=== PATIENT | male | born 1940 | race Caucasian/White ===

== ENCOUNTER 2023-11-18 04:43 | Inpatient (IN) | payer MEDICARE ==
[~2023-11-18] VITALS: Ht 170.2 cm; Wt 88.7 kg
[2023-11-18] VITALS (29 sets, daily range): BP systolic 84–142; BP diastolic 34–68; PULSE 96–112; RESP 15–28; TEMP 97.8–98.6; O2SAT 95
[2023-11-18 05:20] LABS: HEMATOCRIT. 25.2 % (42.0-52.0); HEMOGLOBIN. 7.7 g/dL (14.0-18.0); MEAN CORPUSCULAR HEMOGLOBIN 25.3 pg (28.0-32.0); MEAN CORPUSCULAR HGB CONC 30.6 g/dL (31.0-37.0); MEAN CORPUSCULAR VOLUME 82.7 fL (80.0-94.0); MEAN PLATELET VOLUME 8.5 fl (7.4-10.4); PLATELET 144 x1000/uL (130-400); RED BLOOD CELL COUNT 3.05 mill/uL (4.7-6.1); RED CELL DISTRIBUTION WIDTH 19.1 % (11.6-14.6); WHITE BLOOD COUNT 24.4 x1000/uL (4.5-11.0)
[2023-11-18 05:22] LABS: DIFFERENTIAL COMMENT 1
[2023-11-18 05:26] LABS: CHLORIDE 101 mEq/L (98-107); POTASSIUM 5.3 mEq/L (3.5-5.1); SODIUM 132 mEq/L (136-145)
[2023-11-18 05:28] LABS: CALCIUM 8.3 mg/dL (8.7-10.4); CARBON DIOXIDE 22 mEq/L (21-32)
[2023-11-18 05:33] LABS: CREATININE 2.5 mg/dL (0.6-1.3); GLUCOSE 86 mg/dL (70-105); UREA NITROGEN BLOOD 82 mg/dL (9-23)
[2023-11-18 05:34] LABS: ALANINE AMINOTRANSFERASE 18 IU/L (10-49); ASPARTATE AMINOTRANSFERASE 39 IU/L (<34)
[2023-11-18 05:35] LABS: ALBUMIN 2.8 g/dL (3.2-4.8); BILIRUBIN DIRECT 0.6 mg/dL (<=3.0); BILIRUBIN TOTAL 0.9 mg/dL (0.1-1.0); LACTIC ACID 2.1 mmol/L (0.4-2.0); PROTEIN TOTAL 5.8 g/dL (6.0-8.3)
[2023-11-18 05:38] LABS: INR 1.4; PROTHROMBIN TIME 15.1 sec (9.6-11.0)
[2023-11-18 06:00] LABS: HYPOCHROMASIA 2+; OVALOCYTES 3+; PLATELET ESTIMATE NORMAL; TARGET CELLS 1+; TEAR DROP CELLS 1+
[2023-11-18] MEDS: SODIUM CHLORIDE 0.9% 1,000 ML IV ONE ×2 (06:45→07:44)
[2023-11-18] MEDS: IOHEXOL-350 100 ML BOTTLE ONE (07:28)
[2023-11-18] MEDS: SODIUM CHLORIDE 0.9% 1000ML BAG (SEPSIS BOLUS) IV ONE (08:00)
[2023-11-18] MEDS: PIPERACILLIN/TAZO 3.375G/50ML 50 ML IV ONE (08:00)
[2023-11-18 08:51] LABS: TROPONIN I HIGH SENSITIVITY 113 ng/L (3.0-53)
[2023-11-18] MEDS: VANCOMYCIN 1G PREMIX 200 ML IV ONE (09:03)
[2023-11-18] MEDS: OCTREOTIDE 1,000 MCG in SODIUM CHLORIDE 0.9% 100 ML IV STA (09:59)
[2023-11-18] MEDS: NOREPINEPHRINE 8MG/250ML PMX 250 ML IV SCH (10:05)
[2023-11-18] MEDS: OCTREOTIDE 1,000 MCG in SODIUM CHLORIDE 0.9% 100 ML IV SCH (11:12)
[2023-11-18] MEDS: PANTOPRAZOLE SODIUM 40 MG/VIAL IV STA (11:13)
[2023-11-18] MEDS: OCTREOTIDE ACETATE 50 MCG/ML 1ML IV STA (11:21)
[2023-11-18] MEDS: LIDOCAINE HCL 1% 10 MG/ML 10ML VIAL ONE (12:14)
[2023-11-18 12:32] LABS: CLARITY URINE CLEAR (CLEAR); COLOR URINE YELLOW (YELLOW); GLUCOSE URINE NEGATIVE (NEGATIVE); KETONES URINE TRACE (NEGATIVE); LEUKOCYTE ESTERASE URINE TRACE (NEGATIVE); NITRITE URINE NEGATIVE (NEGATIVE); OCCULT BLOOD URINE TRACE (NEGATIVE); PH URINE 5.5 (4.5-8.0); PROTEIN URINE NEGATIVE (NEGATIVE); SPECIFIC GRAVITY URINE 1.024 (1.005-1.030); UROBILINOGEN URINE 0.2 E.U./dL (0.2-1.0)
[2023-11-18 12:48] LABS: BACTERIA URINE 1+; RBC URINE 0-2 /hpf (0-2); SQUAMOUS EPITHELIAL CELL URINE NONE SEEN /lpf (RARE/1+); YEAST URINE NONE SEEN
[2023-11-18] MEDS: NOREPINEPHRINE 8MG/250ML PMX 250 ML IV PRN (15:40)
[2023-11-18] MEDS ORDERED: VANCOMYCIN 1G PREMIX 200 ML IV SCH (18:45)
[2023-11-18] MEDS ORDERED: ONDANSETRON HCL 4MG/2ML INJ IV PRN (18:45)
[2023-11-18] MEDS: LORAZEPAM 2MG/ML INJ IV PRN (21:40)
[2023-11-18] MEDS: ALBUMIN HUMAN 25GM/100ML (25%) IV SCH (21:42)
[2023-11-18] MEDS: PANTOPRAZOLE SODIUM 40 MG/VIAL IV SCH (21:43)
[2023-11-18] MEDS: PIPERACILLIN/TAZO 3.375G/50ML 50 ML IV SCH (21:43)
[2023-11-18] MEDS: VANCOMYCIN 1GM/200ML PMX (BAXTER) IV NR (21:44)
[2023-11-18 22:16] LABS: HEMATOCRIT. 27.9 % (42.0-52.0); HEMOGLOBIN. 8.3 g/dL (14.0-18.0); MEAN CORPUSCULAR HGB CONC 29.7 g/dL (31.0-37.0); MEAN CORPUSCULAR VOLUME 84.1 fL (80.0-94.0); MEAN PLATELET VOLUME 8.9 fl (7.4-10.4); PLATELET 154 x1000/uL (130-400); RED BLOOD CELL COUNT 3.32 mill/uL (4.7-6.1); RED CELL DISTRIBUTION WIDTH 18.6 % (11.6-14.6); WHITE BLOOD COUNT 25.6 x1000/uL (4.5-11.0)
[2023-11-18 22:17] LABS: DIFFERENTIAL COMMENT 1
[2023-11-18 22:20] LABS: CHLORIDE 102 mEq/L (98-107); POTASSIUM 5.6 mEq/L (3.5-5.1); SODIUM 133 mEq/L (136-145)
[2023-11-18 22:21] LABS: CARBON DIOXIDE 18 mEq/L (21-32)
[2023-11-18 22:21] LABS: IRON 14 ug/dL (65-175)
[2023-11-18 22:22] LABS: CALCIUM 7.8 mg/dL (8.7-10.4)
[2023-11-18 22:24] LABS: GAMMA GLUTAMYL TRANSPEPTIDASE 74 IU/L (<73); TOTAL IRON BINDING CAPACITY 229 ug/dl (250-425)
[2023-11-18 22:25] LABS: AMMONIA 61 uMol/L (<32)
[2023-11-18 22:26] LABS: CREATININE 2.4 mg/dL (0.6-1.3); GLUCOSE 109 mg/dL (70-105)
[2023-11-18 22:27] LABS: UREA NITROGEN BLOOD 64 mg/dL (9-23)
[2023-11-18 22:28] LABS: ALANINE AMINOTRANSFERASE 20 IU/L (10-49); ALBUMIN 2.4 g/dL (3.2-4.8); ASPARTATE AMINOTRANSFERASE 44 IU/L (<34)
[2023-11-18 22:29] LABS: BILIRUBIN TOTAL 1.5 mg/dL (0.1-1.0); PROTEIN TOTAL 5.5 g/dL (6.0-8.3)
[2023-11-18 22:32] LABS: FERRITIN 120 ng/mL (22-322)
[2023-11-18 22:33] LABS: FOLIC ACID (FOLATE) SERUM 9.76 ng/mL (>5.38)
[2023-11-18 22:36] LABS: VITAMIN B12 SERUM > 2000 pg/mL (211-911)
[2023-11-18 22:44] LABS: HEPATITIS B SURFACE ANTIGEN NEGATIVE (Negative)
[2023-11-18 23:04] LABS: HEPATITIS A AB IGM NEGATIVE (Negative)
[2023-11-18 23:06] LABS: HEPATITIS C AB NON REACTIVE (Neg) (Negative)
[2023-11-18 23:09] LABS: HEPATITIS B CORE AB IGM NEGATIVE (Negative)
[2023-11-18 23:13] LABS: ANISOCYTOSIS 1+; PLATELET ESTIMATE NORMAL
[2023-11-19] VITALS (86 sets, daily range): BP systolic 72–189; BP diastolic 33–143; PULSE 89–103; RESP 12–41; TEMP 97.4–98.6
[2023-11-19 05:48] LABS: INR 1.3; PROTHROMBIN TIME 14.6 sec (9.6-11.0)
[2023-11-19 05:49] LABS: HEMATOCRIT. 24.9 % (42.0-52.0); HEMOGLOBIN. 7.4 g/dL (14.0-18.0); MEAN CORPUSCULAR HEMOGLOBIN 25.6 pg (28.0-32.0); MEAN CORPUSCULAR HGB CONC 29.7 g/dL (31.0-37.0); MEAN CORPUSCULAR VOLUME 86.2 fL (80.0-94.0); MEAN PLATELET VOLUME 8.4 fl (7.4-10.4); PLATELET 106 x1000/uL (130-400); RED BLOOD CELL COUNT 2.89 mill/uL (4.7-6.1); RED CELL DISTRIBUTION WIDTH 19.2 % (11.6-14.6); WHITE BLOOD COUNT 18.8 x1000/uL (4.5-11.0)
[2023-11-19 05:56] LABS: CALCIUM 7.9 mg/dL (8.7-10.4); CARBON DIOXIDE 19 mEq/L (21-32); CHLORIDE 104 mEq/L (98-107); POTASSIUM 5.4 mEq/L (3.5-5.1); SODIUM 135 mEq/L (136-145)
[2023-11-19 05:58] LABS: CREATINE KINASE MB FRACTION 2.5 ng/mL (0.5-3.6)
[2023-11-19 06:02] LABS: CREATININE 2.5 mg/dL (0.6-1.3); GLUCOSE 115 mg/dL (70-105); UREA NITROGEN BLOOD 74 mg/dL (9-23)
[2023-11-19 06:04] LABS: PHOSPHORUS 6.7 mg/dL (2.5-4.9)
[2023-11-19] MEDS: LACTULOSE 20G/30ML UDC PO SCH (07:00)
[2023-11-19 07:04] LABS: DIFFERENTIAL COMMENT 1
[2023-11-19 10:35] LABS: CREATINE KINASE MB FRACTION 2.7 ng/mL (0.5-3.6)
[2023-11-19] MEDS ORDERED: FENTANYL CITRATE/PF 50MCG/ML 2ML VIAL IV SCH (11:30)
[2023-11-19] MEDS ORDERED: ACETAMINOPHEN 650MG SUPP PR PRN (11:30)
[2023-11-19 12:31] LABS: ANISOCYTOSIS 2+; PLATELET ESTIMATE DECREASED
[2023-11-19] MEDS: SODIUM CHLORIDE 0.9% 1,000 ML IV SCH (15:49)
[2023-11-19] MEDS: OCTREOTIDE 1,000 MCG in SODIUM CHLORIDE 0.9% 98 ML IV SCH (15:50)
[2023-11-19 21:12] LABS: SODIUM URINE RANDOM 14 mEq/L
[2023-11-19 21:16] LABS: PROTEIN URINE RANDOM 31 mg/dL
[2023-11-19] MEDS ORDERED: OCTREOTIDE ACETATE 100 MCG/ML VIAL SUBCUT SCH (22:00)
[2023-11-20] VITALS (76 sets, daily range): BP systolic 66–113; BP diastolic 43–96; PULSE 97–110; RESP 12–34; TEMP 97.3–98.7
[2023-11-20 07:22] LABS: HEMATOCRIT. 26.4 % (42.0-52.0); HEMOGLOBIN. 7.6 g/dL (14.0-18.0); MEAN CORPUSCULAR HEMOGLOBIN 24.8 pg (28.0-32.0); MEAN CORPUSCULAR HGB CONC 28.6 g/dL (31.0-37.0); MEAN CORPUSCULAR VOLUME 86.5 fL (80.0-94.0); MEAN PLATELET VOLUME 8.4 fl (7.4-10.4); PLATELET 91 x1000/uL (130-400); RED BLOOD CELL COUNT 3.06 mill/uL (4.7-6.1); RED CELL DISTRIBUTION WIDTH 19.1 % (11.6-14.6); WHITE BLOOD COUNT 17.7 x1000/uL (4.5-11.0)
[2023-11-20 07:25] LABS: DIFFERENTIAL COMMENT 1
[2023-11-20 07:27] LABS: CREATININE 2.4 mg/dL (0.6-1.3)
[2023-11-20] MEDS: VANCOMYCIN 1G PREMIX 200 ML IV SCH (10:20)
[2023-11-20 10:45] LABS: ALANINE AMINOTRANSFERASE 15 IU/L (10-49); ALBUMIN 2.9 g/dL (3.2-4.8); ASPARTATE AMINOTRANSFERASE 32 IU/L (<34); BILIRUBIN DIRECT 0.8 mg/dL (<=3.0); BILIRUBIN TOTAL 1.1 mg/dL (0.1-1.0); PROTEIN TOTAL 5.8 g/dL (6.0-8.3)
[2023-11-20 11:20] LABS: BG BASE EXCESS -8.3 mmol/L (-2.0-2.0); BG CARBOXYHEMOGLOBIN 0.6 % (0.5-1.5); BG DEOXYHEMOGLOBIN 5.3 % (0.0-5.0); BG FRACTION INSPIRED OXYGEN 40; BG HCO3 ACT 18.6 mmol/L (22.0-26.0); BG METHEMOGLOBIN 0.3 % (0.0-1.5); BG OXYGEN SATURATION 94.7 % (92.0-98.5); BG OXYHEMOGLOBIN 93.8 % (94.0-97.0); BG PH 7.235 (7.350-7.450); BG PO2 83.3 mmHg (75.0-100.0); BG SAMPLE SITE RIGHT RADIAL; BG TOTAL HEMOGLOBIN 7.9 g/dL (12.0-18.0); BG VENT MODE NASAL CANNULA
[2023-11-20 12:04] LABS: PLATELET ESTIMATE DECREASED
[2023-11-20 12:05] LABS: ANISOCYTOSIS 1+; MICROCYTOSIS 1+
[2023-11-20] MEDS: NOREPINEPHRINE 32 MG in DEXT 5% WATER 218 ML IV PRN (15:11)
[2023-11-20] MEDS: METHYLPREDNISOLONE SOD SUCC 40MG/ML (ACT-O-VIAL) IV SCH (18:02)
[2023-11-20] MEDS: BLOOD SUGAR DIAGNOSTIC STRIP TEST SCH (21:35)
[2023-11-21] VITALS (100 sets, daily range): BP systolic 70–135; BP diastolic 49–105; PULSE 91–111; RESP 16–41; TEMP 97.3–98.7
[2023-11-21 04:58] LABS: HEMOGLOBIN. 8.2 g/dL (14.0-18.0); MEAN CORPUSCULAR HGB CONC 27.4 g/dL (31.0-37.0); MEAN PLATELET VOLUME 8.3 fl (7.4-10.4); PLATELET 90 x1000/uL (130-400); RED BLOOD CELL COUNT 3.29 mill/uL (4.7-6.1); RED CELL DISTRIBUTION WIDTH 19.5 % (11.6-14.6); WHITE BLOOD COUNT 24.1 x1000/uL (4.5-11.0)
[2023-11-21 05:08] LABS: POTASSIUM 5.3 mEq/L (3.5-5.1)
[2023-11-21 05:09] LABS: CALCIUM 8.2 mg/dL (8.7-10.4)
[2023-11-21 05:14] LABS: CREATININE 2.2 mg/dL (0.6-1.3)
[2023-11-21 06:18] LABS: DIFFERENTIAL COMMENT 1
[2023-11-21] MEDS: ALBUMIN HUMAN 12.5G/250ML (5%) IV NR (08:16)
[2023-11-21 10:07] LABS: PLATELET ESTIMATE SLIGHTLY DECREASED
[2023-11-21 10:09] LABS: ANISOCYTOSIS 2+
[2023-11-21 11:39] LABS: BODY FLUID MONOCYTES 1 %; BODY FLUID RBC 658 /cu mm (0-2000); BODY FLUID WBC 100 /cu mm (0-200)
[2023-11-21 13:12] LABS: BG BASE EXCESS -9.1 mmol/L (-2.0-2.0); BG DEOXYHEMOGLOBIN 6.2 % (0.0-5.0); BG FRACTION INSPIRED OXYGEN 44; BG HCO3 ACT 18.8 mmol/L (22.0-26.0); BG METHEMOGLOBIN 0.3 % (0.0-1.5); BG OXYGEN SATURATION 93.7 % (92.0-98.5); BG OXYHEMOGLOBIN 92.5 % (94.0-97.0); BG PH 7.177 (7.350-7.450); BG PO2 78.3 mmHg (75.0-100.0); BG SAMPLE SITE RIGHT RADIAL; BG TOTAL HEMOGLOBIN 8.1 g/dL (12.0-18.0); BG VENT MODE NASAL CANNULA
[2023-11-21 15:57] LABS: BG BASE EXCESS -6.9 mmol/L (-2.0-2.0); BG CARBOXYHEMOGLOBIN 0.5 % (0.5-1.5); BG DEOXYHEMOGLOBIN 9.1 % (0.0-5.0); BG FRACTION INSPIRED OXYGEN 40; BG HCO3 ACT 20.7 mmol/L (22.0-26.0); BG METHEMOGLOBIN 0.4 % (0.0-1.5); BG OXYGEN SATURATION 90.8 % (92.0-98.5); BG PCO2 52.6 mmHg (35.0-45.0); BG PH 7.213 (7.350-7.450); BG PO2 65.5 mmHg (75.0-100.0); BG SAMPLE SITE LEFT RADIAL; BG TOTAL HEMOGLOBIN 8.3 g/dL (12.0-18.0); BG TOTAL RESPIRATORY RATE 27 b/min; BG VENT MODE MASK - BIPAP
[2023-11-22] VITALS (107 sets, daily range): BP systolic 70–169; BP diastolic 45–120; PULSE 89–113; RESP 19–39; TEMP 98.1–98.8
[2023-11-22 05:22] LABS: CREATININE 2.3 mg/dL (0.6-1.3)
[2023-11-22 05:28] LABS: HEMATOCRIT. 24.9 % (42.0-52.0); HEMOGLOBIN. 7.3 g/dL (14.0-18.0); MEAN CORPUSCULAR HEMOGLOBIN 25.3 pg (28.0-32.0); MEAN CORPUSCULAR HGB CONC 29.2 g/dL (31.0-37.0); MEAN CORPUSCULAR VOLUME 86.7 fL (80.0-94.0); RED BLOOD CELL COUNT 2.87 mill/uL (4.7-6.1); RED CELL DISTRIBUTION WIDTH 19.3 % (11.6-14.6); WHITE BLOOD COUNT 22.6 x1000/uL (4.5-11.0)
[2023-11-22 05:32] LABS: POTASSIUM 5.7 mEq/L (3.5-5.1)
[2023-11-22] MEDS ORDERED: DEXTROSE 50% WATER 50ML SYRINGE IV PRN (07:15)
[2023-11-22 07:23] LABS: DIFFERENTIAL COMMENT 1; PLATELET 47 x1000/uL (130-400)
[2023-11-22] MEDS: INSULIN LISPRO 100 UNITS/ML SUBCUT SCH (07:33)
[2023-11-22] MEDS: IPRATROPIUM/ALBUTEROL 0.5-3(2.5)MG/3ML NEB HHN PRN (08:38)
[2023-11-22] MEDS ORDERED: SODIUM POLYSTYRENE SULFONATE 15 G/60 ML BOT PR ONE (09:15)
[2023-11-22 10:12] LABS: ANISOCYTOSIS 2+; NUCLEATED RED BLOOD CELLS 1 /100 WBC; PLATELET ESTIMATE MARKEDLY DECREASED
[2023-11-22 10:14] LABS: MICROCYTOSIS 1+
[2023-11-22] MEDS: SODIUM ZIRCONIUM CYCLOSILICATE 10GM/PACKET PO NR (10:42)
[2023-11-22] MEDS: ALBUMIN HUMAN 12.5GM/50ML (25%) IV SCH (10:43)
[2023-11-22] MEDS: SODIUM POLYSTYRENE SULFONATE 15 G/60 ML BOT PR NR (13:27)
[2023-11-22] MEDS ORDERED: OCTREOTIDE 1,000 MCG in SODIUM CHLORIDE 0.9% 98 ML IV SCH (15:00)
[2023-11-22] MEDS: OCTREOTIDE 1,000 MCG in SODIUM CHLORIDE 0.9% 98 ML IV SCH (15:19)
[2023-11-22 17:23] LABS: INR 1.6; PROTHROMBIN TIME 17.5 sec (9.6-11.0)
[2023-11-22 17:35] LABS: AMMONIA 32 uMol/L (<32)
[2023-11-23] VITALS (78 sets, daily range): BP systolic 42–133; BP diastolic 22–120; PULSE 54–175; RESP 16–38; TEMP 94.7–98.6
[2023-11-23] MEDS: ALBUMIN HUMAN 12.5GM/50ML (25%) IV NR (02:19)
[2023-11-23 05:22] LABS: CALCIUM 8.3 mg/dL (8.7-10.4); MEAN CORPUSCULAR HEMOGLOBIN 24.8 pg (28.0-32.0); MEAN CORPUSCULAR HGB CONC 27.9 g/dL (31.0-37.0); MEAN CORPUSCULAR VOLUME 88.9 fL (80.0-94.0); MEAN PLATELET VOLUME 9.5 fl (7.4-10.4); POTASSIUM 4.9 mEq/L (3.5-5.1); RED BLOOD CELL COUNT 2.75 mill/uL (4.7-6.1); WHITE BLOOD COUNT 26.6 x1000/uL (4.5-11.0)
[2023-11-23 05:28] LABS: AMMONIA < 17 uMol/L (<32); CREATININE 2.3 mg/dL (0.6-1.3)
[2023-11-23 06:05] LABS: INR 1.7; PROTHROMBIN TIME 18.6 sec (9.6-11.0)
[2023-11-23 06:47] LABS: DIFFERENTIAL COMMENT 1; HEMATOCRIT. 24.4 % (42.0-52.0); HEMOGLOBIN. 6.8 g/dL (14.0-18.0); PLATELET 44 x1000/uL (130-400)
[2023-11-23] MEDS ORDERED: PHENYLEPHRINE 50MG/250ML PMX 250 ML IV PRN (07:00)
[2023-11-23] MEDS: DILTIAZEM HCL 5MG/ML 5ML VIAL IV NR ×2 (07:18→08:49)
[2023-11-23] MEDS: DIGOXIN 500MCG/2ML AMP IV NR (07:18)
[2023-11-23] MEDS ORDERED: PHENYLEPHRINE 50 MG in DEXT 5% WATER 245 ML IV PRN (07:20)
[2023-11-23 08:27] LABS: BG BASE EXCESS -9.5 mmol/L (-2.0-2.0); BG CARBOXYHEMOGLOBIN 0.7 % (0.5-1.5); BG DEOXYHEMOGLOBIN 9.1 % (0.0-5.0); BG FRACTION INSPIRED OXYGEN 100; BG HCO3 ACT 18.1 mmol/L (22.0-26.0); BG METHEMOGLOBIN 0.1 % (0.0-1.5); BG OXYGEN SATURATION 90.8 % (92.0-98.5); BG OXYHEMOGLOBIN 90.1 % (94.0-97.0); BG PCO2 48.6 mmHg (35.0-45.0); BG PH 7.189 (7.350-7.450); BG SAMPLE SITE RIGHT RADIAL; BG TOTAL HEMOGLOBIN 7.5 g/dL (12.0-18.0); BG VENT MODE MASK - BIPAP
[2023-11-23] MEDS: SODIUM BICARBONATE 8.4% 1 MEQ/ML 50ML SYR IV NR (08:50)
[2023-11-23] MEDS: SODIUM BICARBONATE 100 MEQ in SODIUM CHLORIDE 0.45% 900 ML IV SCH (09:07)
[2023-11-23] MEDS: MORPHINE SULFATE 2 MG/ML CPJ (NOT FOR IM USE) IV NR (10:41)
[2023-11-23] MEDS ORDERED: NALOXONE HCL 0.4MG/ML VIAL IV PRN (13:15)
[2023-11-23] MEDS: MORPHINE SULFATE 2 MG/ML CPJ (NOT FOR IM USE) IV SCH (13:22)
[2023-11-23 16:52] LABS: ANISOCYTOSIS 1+; HYPOCHROMASIA 1+; PLATELET ESTIMATE MARKEDLY DECREASED
[2023-11-23] MEDS ORDERED: VANCOMYCIN 750MG/150ML (BAXTER) IV SCH (21:00)
[2023-11-24] VITALS: BP 48/33; PULSE 50; RESP 9
[2023-11-24 01:00] VITALS: BP 42/30; PULSE 49; RESP 8
[2023-11-24 02:00] VITALS: BP 44/30; PULSE 49; RESP 12
[2023-11-24 03:00] VITALS: BP 42/29; PULSE 46; RESP 10
[2023-11-24 04:00] VITALS: BP 40/24; PULSE 46; RESP 15
[2023-11-24 05:00] VITALS: BP 38/28; PULSE 54; RESP 18
== END 2023-11-24 06:28 | DRG 871 ==
LOC: ER 04:43 → CVICU 13:13 → EDBEDREQ 13:15 → EDBEDREQTM 13:15 → EDBEDREQSVC 13:15
PROVIDERS: ADMIT Internal Medicine; ATTEND Internal Medicine
PROC: 30233N1 Transfusion of Nonautologous Red Blood Cells into Peripheral Vein, Percutaneous Approach (ICD-10-PCS; 2023-11-18)
PROC: 02HV33Z Insertion of Infusion Device into Superior Vena Cava, Percutaneous Approach (ICD-10-PCS; 2023-11-18)
PROC: B548ZZA Ultrasonography of Superior Vena Cava, Guidance (ICD-10-PCS; 2023-11-18)
PROC: 0W9G3ZZ Drainage of Peritoneal Cavity, Percutaneous Approach (ICD-10-PCS; principal; 2023-11-21)
PROC: 5A09357 Assistance with Respiratory Ventilation, Less than 24 Consecutive Hours, Continuous Positive Airway Pressure (ICD-10-PCS; 2023-11-21)
PROC: 5A09357 Assistance with Respiratory Ventilation, Less than 24 Consecutive Hours, Continuous Positive Airway Pressure (ICD-10-PCS; 2023-11-22)
PROC: 5A09357 Assistance with Respiratory Ventilation, Less than 24 Consecutive Hours, Continuous Positive Airway Pressure (ICD-10-PCS; 2023-11-23)
DX: A41.9 Sepsis, unspecified organism (principal); I85.11 Secondary esophageal varices with bleeding; J18.9 Pneumonia, unspecified organism; R65.21 Severe sepsis with septic shock; J96.02 Acute respiratory failure with hypercapnia; N17.9 Acute kidney failure, unspecified; R18.8 Other ascites; I13.0 Hypertensive heart and chronic kidney disease with heart failure and stage 1 through stage 4 chronic kidney disease, or unspecified chronic kidney disease; D68.9 Coagulation defect, unspecified; K76.6 Portal hypertension; Z66 Do not resuscitate; I71.43 Infrarenal abdominal aortic aneurysm, without rupture; K21.9 Gastro-esophageal reflux disease without esophagitis; K74.60 Unspecified cirrhosis of liver; N18.9 Chronic kidney disease, unspecified; I50.9 Heart failure, unspecified; D64.9 Anemia, unspecified; E61.1 Iron deficiency; K76.82 Hepatic encephalopathy; Z78.1 Physical restraint status
CPT/HCPCS: 36415; 36573; 36600; 49083; 71045; 71275; 74174; 80048; 80076; 80202; 81003; 82140; 82375; 82550; 82553; 82607; 82728; 82746; 82805; 82962; 82977; 83036; 83540; 83550; 83605; 83735; 84100; 84145; 84156; 84300; 84484; 85025; 85044; 85384; 86705; 86709; 86850; 86900; 86920; 87070; 87340; 93005; 94640; 94660; 99291; C1725; C9113; J1160; J1815; J2060; J2270; J2354; J2370; J2543; J2920; J3370; J3490; J7030; J7050; J7060; P9016; P9041; P9047; Q9967